=== PATIENT | male | born 1945 | race Caucasian/White ===

== ENCOUNTER 2021-08-29 06:47 | Day surgery (SDC) | payer MEDICARE, SELFPAY ==
--- NOTE | 2021-08-25 16:52 | MHC.SHP ---
Pre-Procedural Eval Section A Date of Service: 08/25/21 The patient is an INPATIENT: No Changes since office visit: No Cold of Flu in the past 2 weeks, No New Medical Problems, No Changes in Medication and No Patient answered all questions The History & Physical has been completed within 30 days and I have reviewed it.: Yes Section B Chief Complaint: Cataract Left Eye Allergies: Allergies Allergy/AdvReac Type Severity Reaction Status Date / Time No Known Allergies Allergy Unverified 06/13/21 15:57 [No Known Allergies*] Plan I have reviewed the history and physical and performed a pertinent physical examination on my patient. No changes have occurred unless specified.
--- NOTE | 2021-08-26 09:08 | P.CONAN_ITS ---
Documented by User: Delmy Montaño NP 08/26/21 09:10 HPI - Anesthesia Eval Consult details Narrative: 76yo M for Left Cataract Extraction IOL Insertion PCP Cleared Right eye 2015 [facility] Past Medical History Medical History (Updated 06/13/21 @ 16:20 by Maggie Tony RN) Anemia Basal cell carcinoma of skin COVID-19 vaccine series completed DM type 2 (diabetes mellitus, type 2) Elevated cholesterol Essential tremor Hard of hearing HTN (hypertension) JAMAR on CPAP Surgical History Surgical History (Updated 08/29/21 @ 09:43 by Afsaneh Briceno MD) History of right cataract extraction History of umbilical hernia repair Hx of appendectomy Hx of arthroscopy of knee Hx of colonoscopy Social History Social History Are you a primary menagerie caretaker to a significant other at home: No Do you presently have visiting nurse or other home services: No Patient Tobacco Use Status: Former Tobacco user Quit Date: 1969 Tobacco use type: Cigarette Years Smoked: 20 Smoked in Last 30 Days: No Second Hand Smoke Exposure: No Use of substances other than those prescribed or required for medical reasons: No Are you DNR?: No Advance Directives: No Advance Directives Information Provided: Yes Meds Allergies Allergy/AdvReac Type Severity Reaction Status Date / Time No Known Allergies Allergy Verified 08/29/21 08:21 [No Known Allergies*] Home Medications Medication Instructions Recorded Confirmed Last Taken Type albuterol sulfate 90 mcg/actuation 2 puff INHALATION 6XD PRN 06/13/21 06/13/21 Unknown History aerosol inhaler (Ventolin HFA) amlodipine 10 mg tablet 10 mg PO DAILY 06/13/21 06/13/21 08/29/21 06:30 History ascorbic acid (vitamin C) 1,000 mg 1,000 mg PO DAILY@1700 06/13/21 06/13/21 Unknown History tablet (Vitamin C) aspirin 81 mg tablet,delayed 81 mg PO DAILY 06/13/21 06/13/21 Unknown History release cinnamon bark 500 mg capsule 1,000 mg PO DAILY 06/13/21 06/13/21 Unknown History (Cinnamon) docusate sodium 250 mg capsule 250 mg PO BEDTIME 06/13/21 06/13/21 Unknown History flaxseed oil 1,000 mg capsule 1,000 mg PO DAILY 06/13/21 06/13/21 Unknown History glipizide 5 mg tablet, extended 5 mg PO DAILY 06/13/21 06/13/21 Unknown History release 24 hr hydralazine 25 mg tablet 25 mg PO BID 06/13/21 06/13/21 08/29/21 06:30 History hydrochlorothiazide 25 mg tablet 25 mg PO DAILY 06/13/21 06/13/21 Unknown Histo ry metformin 1,000 mg tablet 1,000 mg PO BID 06/13/21 06/13/21 Unknown History multivitamin 1 tab PO DAILY 06/13/21 06/13/21 Unknown History primidone 250 mg tablet 250 mg PO BEDTIME 06/13/21 06/13/21 Unknown History propranolol 120 mg capsule,24 120 mg PO TID 06/13/21 06/13/21 08/29/21 06:30 History hr,extended release simvastatin 20 mg tablet 20 mg PO BEDTIME 06/13/21 06/13/21 Unknown History spironolactone 50 mg tablet 50 mg PO DAILY 06/13/21 06/13/21 08/29/21 06:30 History zolpidem 10 mg tablet 10 mg PO BEDTIME 06/13/21 06/13/21 Unknown History Exam Exam Date and Time: August 26, [id number] Assessment and Plan Assessment Anesthesia Assessment: Chart Reviewed Documented by User: Afsaneh Briceno MD 08/29/21 09:46 PMF Active Problems Active Problems: Intention tremor- mild tremors at rest Past Medical History Medical History (Updated 06/13/21 @ 16:20 by Maggie Tony RN) Anemia Basal cell carcinoma of skin COVID-19 vaccine series completed DM type 2 (diabetes mellitus, type 2) Elevated cholesterol Essential tremor Hard of hearing HTN (hypertension) JAMAR on CPAP Family History Family history of problems with anesthesia: No Surgical History Surgical History (Updated 08/29/21 @ 09:43 by Afsaneh Briceno MD) History of right cataract extraction History of umbilical hernia repair Hx of appendectomy Hx of arthroscopy of knee Hx of colonoscopy History of Problems with Anesthesia: No Social History Social History Are you a primary menagerie caretaker to a significant other at home: No Do you presently have visiting nurse or other home services: No Patient Tobacco Use Status: Former Tobacco user Quit Date: 1969 Tobacco use type: Cigarette Years Smoked: 20 Smoked in Last 30 Days: No Second Hand Smoke Exposure: No Use of substances other than those prescribed or required for medical reasons: No Are you DNR?: No Advance Directives: No Advance Directives Information Provided: Yes Meds Allergies Allergy/AdvReac Type Severity Reaction Status Date / Time No Known Allergies Allergy Verified 08/29/21 08:21 [No Known Allergies*] Home Medications Medication Instructions Recorded Confirmed Last Taken Type albuterol sulfate 90 mcg/actuation 2 puff INHALATION 6XD PRN 06/13/21 06/13/21 Unknown History aerosol inhaler (Ventolin HFA) amlodipine 10 mg tablet 10 mg PO DAILY 06/13/21 06/13/21 08/29/21 06:30 History ascorbic acid (vitamin C) 1,000 mg 1,000 mg PO DAILY@1700 06/13/21 06/13/21 Unknown History tablet (Vitamin C) aspirin 81 mg tablet,delayed 81 mg PO DAILY 06/13/21 06/13/21 Unknown History release cinnamon bark 500 mg capsule 1,000 mg PO DAILY 06/13/21 06/13/21 Unknown History (Cinnamon) docusate sodium 250 mg capsule 250 mg PO BEDTIME 06/13/21 06/13/21 Unknown History flaxseed oil 1,000 mg capsule 1,000 mg PO DAILY 06/13/21 06/13/21 Unknown History glipizide 5 mg tablet, extended 5 mg PO DAILY 06/13/21 06/13/21 Unknown History release 24 hr hydralazine 25 mg tablet 25 mg PO BID 06/13/21 06/13/21 08/29/21 06:30 History hydrochlorothiazide 25 mg tablet 25 mg PO DAILY 06/13/21 06/13/21 Unknown History metformin 1,000 mg tablet 1,000 mg PO BID 06/13/21 06/13/21 Unknown History multivitamin 1 tab PO DAILY 06/13/21 06/13/21 Unknown History primidone 250 mg tablet 250 mg PO BEDTIME 06/13/21 06/13/21 Unknown History propranolol 120 mg capsule,24 120 mg PO TID 06/13/21 06/13/21 08/29/21 06:30 History hr,extended release simvastatin 20 mg tablet 20 mg PO BEDTIME 06/13/21 06/13/21 Unknown History spironolactone 50 mg tablet 50 mg PO DAILY 06/13/21 06/13/21 08/29/21 06:30 History zolpidem 10 mg tablet 10 mg PO BEDTIME 06/13/21 06/13/21 Unknown History Exam Height,Weight and Vital Signs: Height 5 ft 8 in Weight 106.594 kg Vital Signs Temp Pulse Resp BP Pulse Ox 08/29/21 08:23 98.4 F 77 16 180/76 H 98 Pertinent Lab Results Pertinent Lab Results: Lab Results 08/29/21 Range/Units 08:28 POC Glucose 125 H (60-115) mg/dL Airway Mallampati Class: III TM Dist: >3cm Neck ROM: Full Loose/Missing/Broken Teeth: No (Permanent bridge) Heart: RRR Lungs: CTAB Assessment and Plan Assessment Anesthesia Assessment: Anesthesia Plan Discussed Final Anesthetic Review Family History of Problems with Anesthesia: No History of Problems with Anesthesia: No NPO: Yes ASA Class: III Final Preanesthetic Review: No Changes in Pt Med Stat, Meds/Allgs Chart Reviewed, Consent Obtained/Reviewed and Anes Risks/Benef Reviewed Patient Risk: Intermediate Procedure Risk: Low Assessment/Block/Sedation in SS: Assess/Block/Sedation-SS Anesthetic Plan Anesthetic Plan: MAC: Disposition: Standard PACU
[2021-08-29 08:23] VITALS: BP 180/76; PULSE 77; RESP 16; TEMP 36.9; O2SAT 98; BMI 35.7
[2021-08-29] MEDS: Tetracaine HCl/PF 0.5% Oph Sol 4 ML DROPS 1 DROP EYE-LEFT (08:30)
[2021-08-29 08:31] LABS: Glucose, Whole Blood 125 mg/dL (60-115)
[2021-08-29] MEDS: Tropicamide 1 % Ophth Sol 3 ML BTL 1 DROP EYE-LEFT ×3 (08:32→08:44)
[2021-08-29] MEDS: Phenylephrine HCL 2.5% Oph SoL 2 ML BOTTLE 1 DROP EYE-LEFT ×3 (08:36→08:48)
[2021-08-29] MEDS: Lactated Ringers 500 ML 50 ML IV (09:06)
--- NOTE | 2021-08-29 09:49 | HO.PNOPHT ---
Ophthalmology Procedure Procedure Date of Service: 08/29/21 Ophthalmology Viscoelastic: Healon Duet Dual Pack Pro Ophthalmology Lenses: TECNIS [id number] (19.5) Procedure Notes: PREOPERATIVE DIAGNOSIS: Decreased visual acuity left eye secondary to cataract POSTOPERATIVE DIAGNOSIS: Same PROCEDURE: Left cataract extraction with intraocular lens insertion SURGEON: Zachary Ureña M.D. ANESTHESIA: Topical/MAC ESTIMATED BLOOD LOSS: None COMPLICATIONS: None After obtaining informed consent, the patient was brought to the operation room suite and placed in the supine position. After adequate sedation per anesthesia, topical drops of Tetracaine were given to the left eye. The eye was then prepped and draped in the usual sterile fashion. The operating room microscope was then positioned over the operative eye and a lid speculum placed. A paracentesis was created. Viscoelastic was then instilled into the anterior chamber. A three plane incision was then created temporally, utilizing a 2.85 mm keratome. Capsulotomy forceps were then utilized to create a circular tear capsulotomy. Hydrodissection and hydrodelineation were carried out until adequate mobilization of the nucleus occurred. Phacoemulsification was then utilized to remove the dense central nucleus followed by removal of the cortical material utilizing the automated aspiration irrigation unit. Viscoat elastic was instilled into the posterior capsular bag followed by placement of a posterior chamber intraocular lens without difficulty. The residual Viscoat elastic was then removed utilizing the automated IA machine. The wound was check and found to be watertight. The patient tolerated the procedure well and the lid speculum was removed. Intracameral injection of Vigamox 0.1 mL followed by a subtenon injection of Kenalog-40 0.2 mL were administered. The patient will be seen in the a.m.
[2021-08-29 10:17] VITALS: BP 155/78; PULSE 73; RESP 16; TEMP 37.1; O2SAT 97
== END 2021-08-29 11:08 | disposition home or self-care (01) ==
PROVIDERS: PCP Physician Assistant Medical; Visit Provider Ophthalmology
PROC: (CPT 66985; principal; 2021-08-29 09:50)
DX: H25.12 Age-related nuclear cataract, left eye (principal); H54.7 Unspecified visual loss; Z96.1 Presence of intraocular lens; E11.21 Type 2 diabetes mellitus with diabetic nephropathy; I50.9 Heart failure, unspecified; I11.0 Hypertensive heart disease with heart failure; I48.0 Paroxysmal atrial fibrillation; G47.33 Obstructive sleep apnea (adult) (pediatric); G25.0 Essential tremor; E66.9 Obesity, unspecified; H91.90 Unspecified hearing loss, unspecified ear; Z79.01 Long term (current) use of anticoagulants; Z79.84 Long term (current) use of oral hypoglycemic drugs; Z85.828 Personal history of other malignant neoplasm of skin; Z99.89 Dependence on other enabling machines and devices; Z87.891 Personal history of nicotine dependence
CPT/HCPCS: 66984; 82947; J2250; J3010; J3300; V2632